=== PATIENT | male | born 1980 | race Caucasian/White ===

== ENCOUNTER 2021-08-16 11:12 | Emergency (ER) | payer OTHER ==
[~2021-08-16 11:12] MED LIST: FLEXERIL5 MG PO; MOTRIN600 MG PO; NORCO 5-325 TA1 EACH PO
[2021-08-16] MEDS ORDERED: MEDROL 4MG DOSEP4 MG PO (14:39)
== END 2021-08-16 15:47 | disposition home or self-care (01) ==
LOC: FER 11:12
DX: G89.29 Other chronic pain (principal); M54.50 Low back pain, unspecified
CPT/HCPCS: 96372; 99283; J1100; J1885